=== PATIENT | male | born 1960 | race Caucasian/White ===

== ENCOUNTER 2022-10-06 13:54 | Observation (INO) ==
[2022-10-06] MEDS ORDERED: IOPAMIDOL 100 ML BOTTLE IV ONE (13:55)
[2022-10-06 14:57] LABS: POC Calcium, Ionized 1.17 (1.16-1.32); POC Creatinine 1.1 (0.6-1.2); POC Potassium 3.5 (3.3-5.1)
[2022-10-06 15:21] LABS: Basophils # (Auto) 0.04 K/mcL (0.00-0.30); Basophils % (Auto) 0.4 % (0.0-2.0); Eosinophils # (Auto) 0.05 K/mcL (0.00-0.70); Eosinophils % (Auto) 0.5 % (0.0-7.0); Hemoglobin 15.3 g/dL (13.7-17.5); Lymphocytes # (Auto) 1.08 K/mcL (1.50-4.80); Lymphocytes % (Auto) 10.8 % (15.5-49.0); Mean Cell Volume 91.1 fL (80.0-100.0); Mean Platelet Volume 10.3 fL (8.8-12.5); Monocytes # (Auto) 1.08 K/mcL (0.10-0.90); Monocytes % (Auto) 10.8 % (1.0-12.0); Platelet Count 206 K/mcL (140-440); RBC 4.94 M/mcL (4.63-6.08)
[2022-10-06 15:53] LABS: ALT/SGPT 29 U/L (<40); AST/SGOT 17 U/L (<40); Albumin 4.4 gm/dL (3.2-5.2); Alkaline Phosphatase 91 U/L (39-117); Bilirubin,Direct 0.2 mg/dL (<0.3); Bilirubin,Total 1.1 mg/dL (0.1-1.0)
[2022-10-06] MEDS ORDERED: PIPERACILLIN SODIUM/TAZOBACTAM 4.5 GM in DEXTROSE 5% IN WATER 50 ML IV ONE (16:19)
[2022-10-06] MEDS: 0.9 % SODIUM CHLORIDE 1,000 ML IV SCH ×2 (16:44→20:34)
[2022-10-06] MEDS ORDERED: DEXTROSE 31 GM ORAL.SUSP PO PRN (17:14)
[2022-10-06] MEDS ORDERED: PROMETHAZINE 25 MG/ML VIAL IV PRN (17:14)
[2022-10-06] MEDS ORDERED: DEXTROSE 50% 50 ML VIAL IV PRN (17:14)
[2022-10-06] MEDS ORDERED: ONDANSETRON 4 MG ODT TABLET SL PRN (17:20)
[2022-10-06 17:51] LABS: Prothrombin Time 13.4 sec (11.9-14.5)
[2022-10-06 18:05] LABS: Hemoglobin A1C 9.8 % Hgb (4.0-6.0)
[2022-10-06] MEDS: PIPERACILLIN SODIUM/TAZOBACTAM 3.375 GM in DEXTROSE 5% IN WATER 50 ML IV SCH (20:22)
[2022-10-06] MEDS: HYDROmorphone 0.5 MG/0.5 ML SYRINGE IV PRN (20:38)
[2022-10-06] MEDS: INSULIN LISPRO 1 UNIT/0.01 ML UNIT SQ SCH (22:54)
[2022-10-07] MEDS: PIPERACILLIN SODIUM/TAZOBACTAM 3.375 GM in DEXTROSE 5% IN WATER 50 ML IV SCH ×5 (00:05→18:14)
[2022-10-07] MEDS: 0.9 % SODIUM CHLORIDE 1,000 ML IV SCH ×7 (00:56→23:17)
[2022-10-07] MEDS: HYDROmorphone 0.5 MG/0.5 ML SYRINGE IV PRN ×2 (04:47→09:24)
[2022-10-07 06:48] LABS: ALT/SGPT 19 U/L (<40); AST/SGOT 11 U/L (<40); Albumin 3.5 gm/dL (3.2-5.2); Albumin/Globulin Ratio 1.5 (1.0-2.3); Alkaline Phosphatase 65 U/L (39-117); Bilirubin,Direct < 0.2 mg/dL (0-0.3); Bilirubin,Total 0.8 mg/dL (0.1-1.0); Blood Urea Nitrogen 11 mg/dL (8-23); Carbon Dioxide 21 mmol/L (22-30); Chloride 105 mmol/L (96-108); Globulin 2.3 gm/dL (2.2-3.7); Glomerular Filtration Rate 81; Glucose 128 mg/dL (70-105); Lactate Dehydrogenase 118 U/L (135-225); Phosphorous 2.6 mg/dL (2.5-4.5); Triglycerides 120 mg/dL (<150); Uric Acid 3.1 mg/dL (2.5-8.0)
[2022-10-07 06:51] LABS: Basophils # (Auto) 0.03 K/mcL (0.00-0.30); Basophils % (Auto) 0.4 % (0.0-2.0); Eosinophils # (Auto) 0.07 K/mcL (0.00-0.70); Eosinophils % (Auto) 0.8 % (0.0-7.0); Hematocrit 39.6 % (40.1-51.0); Lymphocytes # (Auto) 1.04 K/mcL (1.50-4.80); Lymphocytes % (Auto) 12.2 % (15.5-49.0); Mean Corpuscular HGB Conc 32.8 g/dL (31.0-36.0); Mean Platelet Volume 10.5 fL (8.8-12.5); Monocytes # (Auto) 0.92 K/mcL (0.10-0.90); Monocytes % (Auto) 10.8 % (1.0-12.0); Neutrophils % (Auto) 75.4 % (38.0-78.0); Platelet Count 161 K/mcL (140-440); RBC 4.26 M/mcL (4.63-6.08); Red Cell Distribution Width 12.1 % (11.5-14.5); WBC 8.5 K/mcL (4.5-11.0)
[2022-10-07] MEDS: INSULIN LISPRO 1 UNIT/0.01 ML UNIT SQ SCH ×4 (08:58→20:54)
[2022-10-07] MEDS ORDERED: HYDROmorphone 1 MG/ML SYRINGE ONE (10:55)
[2022-10-07] MEDS ORDERED: GLYCOPYRROLATE 0.2 MG/ML VIAL IV ONE (10:55)
[2022-10-07] MEDS ORDERED: PROPOFOL 200 MG/20 ML VIAL IV ONE (10:55)
[2022-10-07] MEDS ORDERED: ROCURONIUM 10 MG/ML ML IV ONE (10:55)
[2022-10-07] MEDS ORDERED: ATROPINE SULFATE 0.4 MG/ML VIAL ONE (10:55)
[2022-10-07] MEDS ORDERED: ePHEDrine 50 MG/5 ML SYRINGE (ANEST) IV ONE (10:55)
[2022-10-07] MEDS ORDERED: PHENYLephrine 1 MG/10 ML SYRINGE (ANEST) ONE (10:55)
[2022-10-07] MEDS ORDERED: SUGAMMADEX SODIUM 200 MG/2 ML VIAL IV ONE (10:55)
[2022-10-07] MEDS ORDERED: fentaNYL 100 MCG/2 ML VIAL IV ONE (10:55)
[2022-10-07] MEDS ORDERED: LIDOCAINE HCL/PF 100 MG/5 ML SYRINGE IV ONE (10:55)
[2022-10-07] MEDS ORDERED: MAGNESIUM SULFATE 2 GM/50 ML BAG IV ONE (10:55)
[2022-10-07] MEDS ORDERED: SCOPOLAMINE 1 PATCH PATCH TOPICAL PRN (11:00)
[2022-10-07] MEDS ORDERED: IPRATROPIUM/ALBUTEROL 3 ML AMPUL.NEB NEB PRN ×2 (11:00→12:01)
[2022-10-07] MEDS ORDERED: MEPERIDINE 25 MG/ML VIAL IV PRN (12:01)
[2022-10-07] MEDS ORDERED: ONDANSETRON 4 MG/2 ML VIAL IV PRN (12:01)
[2022-10-07] MEDS ORDERED: LACTATED RINGERS 250 ML IV PRN (12:01)
[2022-10-07] MEDS ORDERED: ACETAMINOPHEN 1,000 MG/100 ML BAG IV ONE (12:01)
[2022-10-07] MEDS ORDERED: fentaNYL 100 MCG/2 ML VIAL IV PRN (12:01)
[2022-10-07] MEDS ORDERED: PROMETHAZINE 25 MG/ML VIAL IV PRN (12:01)
[2022-10-07] MEDS ORDERED: diphenhydrAMINE 50 MG/ML VIAL IV PRN (12:01)
[2022-10-07] MEDS ORDERED: NALOXONE HCL 0.4 MG/ML VIAL IV PRN (12:01)
[2022-10-07] MEDS ORDERED: LACTATED RINGERS 1,000 ML IV SCH (12:15)
[2022-10-08] MEDS: PIPERACILLIN SODIUM/TAZOBACTAM 3.375 GM in DEXTROSE 5% IN WATER 50 ML IV SCH ×3 (00:11→11:34)
[2022-10-08] MEDS: 0.9 % SODIUM CHLORIDE 1,000 ML IV SCH ×4 (00:12→10:48)
[2022-10-08] MEDS: HYDROmorphone 0.5 MG/0.5 ML SYRINGE IV PRN ×2 (05:50→07:56)
[2022-10-08 06:29] LABS: Basophils # (Auto) 0.03 K/mcL (0.00-0.30); Basophils % (Auto) 0.5 % (0.0-2.0); Eosinophils % (Auto) 1.7 % (0.0-7.0); Hematocrit 37.3 % (40.1-51.0); Hemoglobin 12.2 g/dL (13.7-17.5); Lymphocytes # (Auto) 0.95 K/mcL (1.50-4.80); Lymphocytes % (Auto) 16.3 % (15.5-49.0); Mean Cell Volume 94.4 fL (80.0-100.0); Mean Corpuscular HGB Conc 32.7 g/dL (31.0-36.0); Mean Platelet Volume 10.6 fL (8.8-12.5); Monocytes # (Auto) 0.71 K/mcL (0.10-0.90); Monocytes % (Auto) 12.2 % (1.0-12.0); Platelet Count 157 K/mcL (140-440); RBC 3.95 M/mcL (4.63-6.08); WBC 5.8 K/mcL (4.5-11.0)
[2022-10-08 07:11] LABS: ALT/SGPT 16 U/L (<40); AST/SGOT 10 U/L (<40); Albumin 3.3 gm/dL (3.2-5.2); Albumin/Globulin Ratio 1.4 (1.0-2.3); Alkaline Phosphatase 60 U/L (39-117); Bilirubin,Direct < 0.2 mg/dL (0-0.3); Bilirubin,Total 0.5 mg/dL (0.1-1.0); Blood Urea Nitrogen 7 mg/dL (8-23); Calcium 8.2 mg/dL (8.6-10.4); Carbon Dioxide 22 mmol/L (22-30); Chloride 105 mmol/L (96-108); Globulin 2.4 gm/dL (2.2-3.7); Glomerular Filtration Rate 72; Glucose 112 mg/dL (70-105); Lactate Dehydrogenase 114 U/L (135-225); Phosphorous 2.9 mg/dL (2.5-4.5); Triglycerides 93 mg/dL (<150); Uric Acid 2.6 mg/dL (2.5-8.0)
[2022-10-08] MEDS: INSULIN LISPRO 1 UNIT/0.01 ML UNIT SQ SCH ×2 (07:56→10:51)
== END 2022-10-08 15:00 | disposition home or self-care (01) ==
LOC: ED 13:54 → MEDSUR 13:54
PROVIDERS: ADMIT Family Medicine Adult Medicine; ATTEND Family Medicine Adult Medicine